=== PATIENT | male | born 1940 | race Caucasian/White ===

== ENCOUNTER 2018-09-04 00:23 | Inpatient (IN) | payer OTHER ==
[~2018-09-04] VITALS: Ht 182.9 cm; Wt 86.2 kg
--- NOTE | ~2018-09-04 | HC ---
[facility] [place] [address] CONSULTATION Name: NEO SKY Room #: [facility] IN ..#: [id number] Admission: 09/04/18 Attend Phys: Jacobo Zimmer MD, Discharge: Date of : 42 Report #: [id number] THIS REPORT FOR: //name// CC: FAM unknown Jacobo Zimmer DATE OF SERVICE: 09/04/2018 NEPHROLOGY CONSULTATION REASON FOR CONSULTATION: Acute kidney injury. HISTORY OF PRESENT ILLNESS: The patient was found down at home with an oii-sz-wnzhgcwx cardiac arrest, was resuscitated in the field and brought in. He is on hypothermic protocol. His creatinine is 2. He has had some degree of hypotension and metabolic acidosis, had heart block, was taken to the wheelabrator operator, had a temporary pacemaker placed. PAST MEDICAL HISTORY: As taken from the charts. The patient is comatose in the ICU, intubated on the ventilator. He has a history of peripheral arterial disease, previous right iliac and SFA stents and previous bilateral carotid endarterectomies. He has a history of hypertension as well. There is apparently remote history of bladder cancer additionally. SOCIAL HISTORY: Reveals a former smoker and drinker, but not recently. and lives with his . FAMILY HISTORY: Not obtainable. REVIEW OF SYSTEMS: Not obtainable. PHYSICAL EXAMINATION: GENERAL: The patient is unresponsive on the vent in the ICU. He is on pressors, both Levophed and dopamine. VITAL SIGNS: Blood pressure 95/46, pulse 111 and regular. SKIN: Slightly cool. SKELETAL: Well developed, well nourished. HEENT: Extraocular movements are not tested. Pupils reactive. Endotracheal tube in place. NECK: Supple. CHEST: Coarse with some rhonchi. HEART: Regular but tachycardic. ABDOMEN: Soft and nontender. EXTREMITIES: Show no peripheral edema. The feet are slightly cool. LABORATORY DATA: Hemoglobin is 11.9, white count 20.4, he is up to [address] [address] CONSULTATION Name: NEO SKY Room #: [address] [place] [address] [place] [facility].#: [id number] Admission: 09/04/18 Attend Phys: Jacobo Zimmer MD, Discharge: Date of : 42 Report #: [id number] initially too, platelets are 270. Sodium 136, potassium 3.2, chloride 103, bicarbonate 22, BUN 26, creatinine 2, glucose is 329, calcium 6.7, phosphorus 4.6, magnesium 2.0. ASSESSMENT AND PLAN: 1. Acute kidney injury. We do not have a history of prior renal disease. His creatinine is up. He is an roy-si-uzbnwgpf arrest. He obviously had an ischemic insult to his kidneys, whether he will recover or not remains to be seen. He is making some urine, but it is dwindling off. We will adjust IV fluids, add some bicarbonate, keep up his volume. We will try to taper him off the dopamine to maintain the Levophed looking for a mean arterial pressure of at least 60 at the current time and we will see as to whether he will recover are not. 2. Hypotension. Fluids and pressors indicated. 3. Dsh-xm-hbttmeam cardiac arrest, on hypothermia protocol. 4. History of peripheral arterial disease, carotid endarterectomies and peripheral stenting. 5. Hypokalemia. We will replace. By: [id number] 1304 Jacobo Neil MD /nt
--- NOTE | ~2018-09-04 | EKG ---
[address] [place] [address] ELECTROCARDIOGRAM REPORT Name: NEO SKY Room #: 239-P ADM IN M.R.#: [id number] Admission: 09/04/18 Attend Phys: Jacobo Zimmer MD, Discharge: Date of : 42 Report #: [id number] THIS REPORT FOR: //name// [facility] ED Test Date: 2018-09-04 Test Time: 00:29:36 Pat Name: NEO SKY Department: Room: 239 Gender: M Procedures Nurse: MOISÉS : 1940 Requested By: Yefri Cowan Order Number: [id number] MD: Riley Martell Measurements Intervals [place] Rate: 54 P: 0 [place]: 71 QRS: -84 QRSD: 155 T: 67 QT: 563 QTc: 534 Interpretive Statements Possible atrial flutter RBBB and LAFB ST and T wave abnormality, consider ischemia No previous ECG available for comparison Electronically Signed On 09-04-2018 8:15:47 CDT by Riley Martell [email or web address] <ELECTRONICALLY SIGNED> By: Riley Martell MD, [facility] 09/04/18 0815 0029 0029 Riley Martell MD, [facility] /EPI
--- NOTE | ~2018-09-04 | 2DMMODE ---
[facility] [employer] [place] [place] [address] 2 D/M-MODE ECHOCARDIOGRAM Name: NEO SKY II Room #: 239-P [facility] IN ..#: [id number] Admission: 09/04/18 Attend Phys: Jacobo Zimmer, Discharge: Date of : 42 Date of Service: 09/04/18 1239 Report #: [id number] THIS REPORT FOR: //name// APPROVED REPORT Study performed: 09/04/2018 09:56:57 EXAM: Comprehensive 2D, Doppler, and color-flow Echocardiogram Patient Location: ICU Room #: [facility] Status: routine BSA: 2.04 HR: 111 bpm BP: 98/36 mmHg Rhythm: Tachycardia Other Information Study Quality: Fair/not all measurements were obtainable Technically limited study due to Patient on vent in ICU. Limited mobility. Poor windows availability. Indications Cardiac arrest, hypotension, status post temporary pacemaker. Hx: PVD, HTN, tob and ETOH abuse. 2D Dimensions IVSd: 12.04 (7-11mm) LVOT Diam: 19.87 (18-24mm) LVDd: 35.43 mm PWd: 11.84 (7-11mm) LVDs: 27.30 (25-40mm) Aortic Root: 31.39 mm Aortic Valve AoV Peak Roland.: 1.90 m/s AO Peak Gr.: 14.41 mmHg LVOT Max P.07 mmHg LVOT Max V: 1.13 m/s DAMON Vmax: 1.84 cm2 Mitral Valve MV Decel. Time: 150.68 ms MV E Max Roland.: 0.98 m/s Pulmonary Valve PV Peak Roland.: 1.33 m/s PV Peak Gr.: 7.04 mmHg [facility] [address] [place] [address] 2 D/M-MODE ECHOCARDIOGRAM Name: NEO SKY Room #: [facility] IN [facility].#: [id number] Admission: 09/04/18 Attend Phys: Jacobo Zimmer, Discharge: Date of : 42 Date of Service: 09/04/18 1239 Report #: [id number] Tricuspid Valve TR Peak Roland.: 2.65 m/s RAP Estimate: 5.00 mmHg TR Peak Gr.: 28.03 mmHg PA Pressure: 33.00 mmHg Left Ventricle The left ventricle is normal size. Paradoxical septal motion possibly from RV pacing. Mild concentric left ventricular hypertrophy. Left ventricular systolic function is mildly decreased. LVEF is 45-50%. This study is not technically sufficient to allow evaluation of the LV diastolic function. Right Ventricle The right ventricle appears grossly normal size and function. Atria The left atrium size is normal. The right atrium size is normal. Aortic Valve The aortic valve is mildly sclerotic. Trace aortic regurgitation. There is no aortic valvular stenosis. Mitral Valve The mitral valve is normal in structure. There is no mitral valve regurgitation noted. Tricuspid Valve The tricuspid valve is normal in structure. Trace tricuspid regurgitation. Estimated PAP is 35mmHg. Pulmonic Valve The pulmonary valve is normal in structure. Trace pulmonic regurgitation. Great Vessels The aortic root is normal in size. IVC is normal in size and collapses >50% with inspiration. Pericardium There is no pericardial effusion. <Conclusion> Left ventricular systolic function is mildly decreased. LVEF is 45-50%. [facility] [employer] [place] [address] 2 D/M-MODE ECHOCARDIOGRAM Name: JOSE DANIELNEO Room #: 239-P [facility] IN .R.#: [id number] Admission: 09/04/18 Attend Phys: Jacobo Zimmer, Discharge: Date of : 42 Date of Service: 09/04/18 1239 Report #: [id number] Paradoxical septal motion possibly from RV pacing. The aortic valve is mildly sclerotic. Trace aortic regurgitation, no stenosis The mitral valve is normal in structure. No mitral valve regurgitation Trace tricuspid regurgitation. Estimated pulmonary artery pressure of 35mmHg. There is no pericardial effusion. <ELECTRONICALLY SIGNED> By: Riley Martell MD, FACC 09/04/18 1239 123 1239 Riley Martell MD, FACC /INF
--- NOTE | ~2018-09-04 | H ---
[facility] [place] [address] HISTORY AND PHYSICAL Name: NEO SKY ARLENE Room #: 239-P [facility] IN M.R.#: [id number] Admission: 09/04/18 Attend Phys: Jacobo Zimmer MD, Discharge: 09/05/18 Date of : 42 Report #: [id number] THIS REPORT FOR: //name// CC: FAM unknown Jacobo Pate DATE OF SERVICE: 09/04/2018 HISTORY OF PRESENT ILLNESS: The patient is a 77-year-old man who was in out of hospital arrest. Does not have specific cardiac history. He has had prior bilateral carotid endarterectomies and recently had some right iliac and SFA stents from the best I can tell. noted he has had a good day. He has been active. The stents were placed in his leg a week or two ago. He is on aspirin and Plavix. He is also on amlodipine, hydrochlorothiazide and Protonix or some PPI. Noticed that he was not breathing when he came to bed. Subsequently, summoned paramedics. It is not clear how long the downtime was here. Comes in and obviously received resuscitation in the field with some epinephrine. Found to have complete heart block here and is currently transcutaneously paced, although his underlying rhythm looks to be a ventricular escape in the 30s or 40s. There appears to be AV dissociation. His pressure is 90-100 systolic with 15 mcg of dopamine and 5 of Levophed. He was sedated and paralyzed by the Emergency Room physician. He is being brought into the labor arbitrator for possible temporary pacer and coronary angiography. Electrolytes that I am aware of is a potassium of 2.9 and he is being replaced IV parish and a creatinine of 2.1. Hemoglobin was 11. PAST MEDICAL HISTORY: Positive for the peripheral vascular disease, carotid endarterectomy, bladder cancer and hypertension. He believes he has had a stress test few years ago. DJD. SOCIAL HISTORY: Prior smoker and drinker, none recently. He is a retired electrician machine shop. He is with one child who is in [place], accompanied by his and some other family. FAMILY HISTORY: Not obtainable. REVIEW OF SYSTEMS: Not obtainable. PHYSICAL EXAMINATION: GENERAL: He is paralyzed. He is intubated. He is on a ventilator. VITAL SIGNS: Transcutaneously paced with a rate of 70, pressure has been 190-100 systolic. HEENT: Eyes reveal no xanthelasmas. Pharynx is slightly dry, appears to be dry mucous membranes. He is intubated. NECK: Shows preserved upstrokes without JVD. [facility] [address] [place] [address] HISTORY AND PHYSICAL Name: NEO SKY Room #: 239-P [facility] IN M.R.#: [id number] Admission: 09/04/18 Attend Phys: Jacobo Zimmer MD, Discharge: 09/05/18 Date of : 42 Report #: [id number] LUNGS: Clear anteriorly. CARDIOVASCULAR: S1 and S2. Systolic murmur is noted. ABDOMEN: Slightly distended. EXTREMITIES: There are diminished femoral pulses. I cannot palpate distal pulses. NEUROLOGICAL: He is paralyzed and sedated. MUSCULOSKELETAL: Generalized arthritic changes. SKIN: Warm and dry without xanthoma or ulcer. ASSESSMENT: 1. Out of hospital cardiac arrest. 2. Complete heart block. 3. Hypokalemia. 4. Peripheral vascular disease. 5. Possible acute infarct setting, although no definite current of injury. 6. Degenerative joint disease. RECOMMENDATIONS AND PLAN: We will proceed to the catheterization lab at least for temporary pacemaker and coronary angiography and intervention as indicated. The patient has apparently done fairly well and had a reasonable quality of life. Certainly this is a grave situation. I did discuss this with the . Out of hospital arrest, we are replacing electrolytes, temporary pacemaker and intervention if indicated. Arterial and venous lines and we will proceed then to the ICU in certainly guarded condition here, critical. <ELECTRONICALLY SIGNED> By: Jacobo Zimmer MD, FACC 09/06/18 1255 0219 0356 Jacobo Zimmer MD, FACC /nt
--- NOTE | ~2018-09-04 | EKG ---
[address] [address] ELECTROCARDIOGRAM REPORT Name: NEO SKY Room #: 239-P ADM IN M.R.#: [id number] Admission: 09/04/18 Attend Phys: Jacobo Zimmer MD, Discharge: Date of : 42 Report #: [id number] THIS REPORT FOR: //name// [facility] ED Test Date: 2018-09-04 Test Time: 00:42:37 Pat Name: NEO SKY Department: Room: 239 P Gender: M Certified Pathology Assistant: MOISÉS : 1940 Requested By: Yefri Cowan Order Number: [id number] MD: Riley Martell Measurements Intervals [place] Rate: 50 P: [place]: QRS: -94 QRSD: 157 T: 37 QT: 565 QTc: 516 Interpretive Statements Sinus rhythm with complete heart block Right bundle branch block Anteroseptal infarct, age indeterminate No previous ECG available for comparison Electronically Signed On 09-04-2018 8:18:21 CDT by Riley Martell [email or web address] <ELECTRONICALLY SIGNED> By: Riley Martell MD, [facility] 09/04/18 0818 004 004 Riley Martell MD, [facility] /EPI
--- NOTE | ~2018-09-04 | CATHLAB ---
[facility] [address] [place] [address] INVASIVE PROCEDURE REPORT Name: NEO SKY Room #: 239-P [facility] IN ..#: [id number] Admission: 09/04/18 Attend Phys: Jacobo Zimmer, Discharge: Date of : 42 Date of Service: 09/05/18 1145 Report #: [id number] THIS REPORT FOR: //name// APPROVED REPORT Study performed: 09/04/2018 01:53:04 Patient Details Patient Status: In-Patient Room #: The patient is a 77 year-old male Event Personnel Jacobo Zimmer Floral Arranger, Haily Braxton [place], Christine RTYuki Monitor, Bridget Costa RN plasticator Performed Art Access - R femoral artery* [place]um Access - R femoral vein Left Heart Cath w/or w/o Coronaries [id number] [facility] Temporary Pacemaker Lead Inserted [id number] TPI Indication Arrhythmia Procedure Narrative The patient was brought emergently to the Cardiac Catheterization Laboratory and was prepped and draped in a sterile manner. The Right Groin^ was infiltrated with 1% Lidocaine subcutaneous anesthesia. A PINNACLE 6FR Sheath #[id number] sheath was inserted into the RFA 6FR^. Coronary angiography was performed using coronary diagnostic catheters. The right coronary system was accessed and visualized with a JR 4 catheter. The left coronary system was accessed and visualized with a JL 4 catheter. The left ventricle was accessed and visualized with a Pigtail catheter. Left ventriculogram was performed in MORAES projection. The patient tolerated the procedure well and there were no complications associated with the procedure. There was no hematoma. Fluoro Time: 3.44 minutes Dose: DAP 3832.10 cGycm2 429 mGy Contrast Type and Amount: Visipaque 65 ml Hemodynamics The aortic pressure is 115/44 mmHg with a mean of 65 mmHg. The left ventricular pressure is 112/15 mmHg with a mean of mmHg. The left ventricular end diastolic pressure is 29 mmHg. [facility] [address] [place] [address] INVASIVE PROCEDURE REPORT Name: JOSE DANIELNEO Bulmaro Room #: 239-P [facility] IN [facility].#: [id number] Admission: 09/04/18 Attend Phys: Jacobo Zimmer, Discharge: Date of : 42 Date of Service: 09/05/18 1145 Report #: [id number] Conclusion #1 emergent temporary pacemaker placed for complete heart block A-V dissociation #2 left main was some moderate distal disease giving rise to LAD and circumflex #3 LAD has mildly high-grade proximal and attenuated vessel and disease noted relatively small area in distribution. Flow however is normal #4 circumflex OM is a large dominant system with some mild ostial disease just at the takeoff of the left main no distal occlusive disease is noted 40-50% proximal circumflex #5 normal left ventricular size LV function lower limits of normal 50% range I do not see a segmental wall motion abnormality Recommendations and plan: The patient blood pressure is maintained some pressor support. This is a out of hospital arrest. Patient intubated sedated and paralyzed. Anatomy is difficult to evaluate in the ostial proximal LAD but does not appear to be the culprit for this event. I have been able to decrease the pressor support during this procedure. Patient will transfer to the ICU in critical condition. The LV function is preserved and does not show segmental wall motion abnormality. Approximately 30 minutes of critical care time involving this patient both in the emergency room and prior to initiating the catheterization procedure occurred. <ELECTRONICALLY SIGNED> By: Jacobo Zimmer MD, FACC 09/05/18 1145 1145 1145 Jacobo Zimmer MD, FACC /INF
[2018-09-04 00:26] VITALS: BP 89/44
[2018-09-04 00:45] LABS: HEMATOCRIT 34.7 % (42.0-52.0); HEMOGLOBIN 11.9 gm/dL (14.0-18.0); MCH 33.3 pg (26.0-34.0); MCHC 34.3 g/dL (28.0-37.0); MCV 96.9 fL (80.0-100.0); PLATELET COUNT 270 thou/uL (150-400); RBC 3.58 mil/uL (4.50-6.00); RDW 13.3 % (10.5-14.5); WBC 13.6 thou/uL (4.0-11.0)
[2018-09-04 00:50] LABS: CALCIUM 7.9 mg/dL (8.5-10.1); CREATININE 2.1 mg/dL (0.7-1.3)
[2018-09-04 00:59] LABS: TROPONIN-I 0.25 ng/mL (<0.06)
[2018-09-04 01:01] LABS: POTASSIUM 2.9 mmol/L (3.5-5.1)
[2018-09-04 01:01] LABS: BE(vivo) -9.2 mmol/L (-2 to +3); HCO3 17.5 mmol/L (22.0-26.0); PCO2 40.9 mmHg (35.0-45.0); PO2 418.3 mmHg (80.0-100.0); pH 7.248 (7.360-7.450); sO2 99.8 % (92.0-98.0)
[2018-09-04] MEDS ORDERED: PLAVIX 75 MG TA75 M1 PO (01:14)
[2018-09-04] MEDS ORDERED: PROTONIX40 M1 PO (01:15)
[2018-09-04] MEDS ORDERED: NORVASC2.5 MG PO (01:15)
[2018-09-04] MEDS ORDERED: TERAZOSIN HCL5 MG PO (01:15)
[2018-09-04] MEDS ORDERED: HYDROCHLOROTHIA25 M2 PO (01:16)
[2018-09-04] MEDS ORDERED: VITAMIN D1000 UNI1 PO (01:16)
[2018-09-04 01:31] LABS: APTT 27.8 Seconds (24.5-32.8); PROTIME 10.3 Seconds (9.3-11.4)
[2018-09-04 01:33] LABS: MAGNESIUM 2.2 mg/dL (1.8-2.4); PHOSPHORUS 6.2 mg/dL (2.5-4.9)
[2018-09-04 02:13] VITALS: BP 96/38
[2018-09-04 03:46] VITALS: BP 92/31
[2018-09-04 04:00] VITALS: BP 93/36
[2018-09-04 04:15] LABS: HCO3 20.1 mmol/L (22.0-26.0); PCO2 52.2 mmHg (35.0-45.0); PO2 346.8 mmHg (80.0-100.0); pH 7.204 (7.360-7.450); sO2 99.7 % (92.0-98.0)
[2018-09-04 05:02] LABS: HEMATOCRIT 35.3 % (42.0-52.0); HEMOGLOBIN 11.9 gm/dL (14.0-18.0); MCH 32.4 pg (26.0-34.0); MCHC 33.7 g/dL (28.0-37.0); MCV 96.2 fL (80.0-100.0); PLATELET COUNT 270 thou/uL (150-400); RBC 3.67 mil/uL (4.50-6.00); RDW 13.3 % (10.5-14.5); WBC 20.4 thou/uL (4.0-11.0)
[2018-09-04 05:27] LABS: CALCIUM 6.7 mg/dL (8.5-10.1); PHOSPHORUS 4.6 mg/dL (2.5-4.9); POTASSIUM 3.2 mmol/L (3.5-5.1)
[2018-09-04 05:31] LABS: TROPONIN-I 7.22 ng/mL (<0.06)
[2018-09-04 05:35] LABS: D-DIMER 28.53 ug/mLFEU (0.19-0.50); FIBRINOGEN 292.3 mg/dL (210-360); INR 1.3
[2018-09-04 05:51] LABS: ABSOLUTE NEUTROPHILS 19.2 thou/uL (1.4-8.2); METAMYELOCYTES 1 %
[2018-09-04 05:52] LABS: PLATELET ESTIMATE NORMAL
[2018-09-04 07:49] LABS: BE(vivo) -12.4 mmol/L (-2 to +3); HCO3 16.2 mmol/L (22.0-26.0); PCO2 47.8 mmHg (35.0-45.0); PO2 79.8 mmHg (80.0-100.0); sO2 92.1 % (92.0-98.0)
[2018-09-04 07:50] LABS: pH 7.149 (7.360-7.450)
[2018-09-04 08:06] LABS: CHOLESTEROL 86 mg/dL (<200); HDL CHOLESTEROL 39 mg/dL (>40); LDL CHOLESTEROL 42 mg/dL (<100); TC:HDL 2.2 Ratio (Not establshd); TRIGLYCERIDE 27 mg/dL (<150); VLDL 5 mg/dL (<40)
[2018-09-04 08:48] LABS: APTT > 198.4 Seconds (24.5-32.8)
[2018-09-04 10:35] LABS: HEMATOCRIT 31.5 % (42.0-52.0); HEMOGLOBIN 11.1 gm/dL (14.0-18.0); MCH 33.8 pg (26.0-34.0); MCHC 35.2 g/dL (28.0-37.0); MCV 95.9 fL (80.0-100.0); PLATELET COUNT 224 thou/uL (150-400); RBC 3.28 mil/uL (4.50-6.00); RDW 13.1 % (10.5-14.5); WBC 12.5 thou/uL (4.0-11.0)
[2018-09-04 10:47] LABS: ALBUMIN 2.1 g/dL (3.4-5.0); CALCIUM 6.8 mg/dL (8.5-10.1); CREATININE 2.1 mg/dL (0.7-1.3); PHOSPHORUS 1.9 mg/dL (2.5-4.9)
[2018-09-04 10:51] LABS: BE(vivo) -7.2 mmol/L (-2 to +3); PCO2 54.3 mmHg (35.0-45.0); PO2 84.8 mmHg (80.0-100.0); sO2 94.1 % (92.0-98.0)
[2018-09-04 10:51] LABS: POTASSIUM 2.6 mmol/L (3.5-5.1)
[2018-09-04 10:52] LABS: pH 7.205 (7.360-7.450)
[2018-09-04 10:55] LABS: ABSOLUTE NEUTROPHILS 11.8 thou/uL (1.4-8.2); METAMYELOCYTES 1 %; PLATELET ESTIMATE NORMAL
[2018-09-04 10:56] LABS: INR 1.3; PROTIME 13.2 Seconds (9.3-11.4)
[2018-09-04 11:19] LABS: APTT > 198.4 Seconds (24.5-32.8)
[2018-09-04 16:03] VITALS: BP 93/46
[2018-09-04] MEDS ORDERED: XALATAN2.5 ML (16:34)
[2018-09-04] MEDS ORDERED: FLEXERIL PO (16:37)
[2018-09-04 19:21] LABS: BE(vivo) -12.5 mmol/L (-2 to +3); HCO3 16.5 mmol/L (22.0-26.0); PCO2 52.8 mmHg (35.0-45.0); PO2 57.8 mmHg (80.0-100.0); sO2 79.7 % (92.0-98.0)
[2018-09-04 19:22] LABS: pH 7.114 (7.360-7.450)
[2018-09-04 20:07] LABS: GLYCOHEMOGLOBIN (HGB A1C) 5.4 % (4.8-5.6)
[2018-09-04 20:29] LABS: ABSOLUTE NEUTROPHILS 6.1 thou/uL (1.4-8.2); BASOPHILS 0.3 % (0.0-2.0); EOSINOPHILS 0.1 % (0.0-3.0); HEMATOCRIT 26.9 % (42.0-52.0); HEMOGLOBIN 9.5 gm/dL (14.0-18.0); LYMPHOCYTES 7.1 % (24.0-44.0); MCH 33.9 pg (26.0-34.0); MCHC 35.2 g/dL (28.0-37.0); MCV 96.3 fL (80.0-100.0); MONOCYTES 4.3 % (1.0-8.0); PLATELET COUNT 184 thou/uL (150-400); POLYS 88.2 % (36.0-66.0); RBC 2.79 mil/uL (4.50-6.00); RDW 12.8 % (10.5-14.5); WBC 6.9 thou/uL (4.0-11.0)
[2018-09-04 20:42] LABS: ALBUMIN 1.8 g/dL (3.4-5.0); CREATININE 1.8 mg/dL (0.7-1.3)
[2018-09-04 20:43] LABS: CALCIUM 6.2 mg/dL (8.5-10.1); CREATININE 1.8 mg/dL (0.7-1.3); MAGNESIUM 1.6 mg/dL (1.8-2.4)
[2018-09-04 20:44] LABS: INR 1.1; POTASSIUM 2.9 mmol/L (3.5-5.1); PROTIME 11.6 Seconds (9.3-11.4)
[2018-09-04 20:45] LABS: APTT 77.4 Seconds (24.5-32.8)
[2018-09-04 21:51] LABS: BE(vivo) -8.6 mmol/L (-2 to +3); HCO3 19.5 mmol/L (22.0-26.0); PCO2 53.4 mmHg (35.0-45.0); PO2 57.8 mmHg (80.0-100.0); sO2 82.6 % (92.0-98.0)
[2018-09-04 21:52] LABS: pH 7.181 (7.360-7.450)
[2018-09-04 23:54] LABS: BE(vivo) -1.8 mmol/L (-2 to +3); HCO3 25.9 mmol/L (22.0-26.0); PCO2 59.8 mmHg (35.0-45.0); sO2 77.5 % (92.0-98.0)
[2018-09-04 23:55] LABS: PO2 48.9 mmHg (80.0-100.0); pH 7.255 (7.360-7.450)
[2018-09-05 01:09] LABS: MAGNESIUM 1.9 mg/dL (1.8-2.4); PHOSPHORUS 4.4 mg/dL (2.5-4.9)
[2018-09-05 01:11] LABS: CALCIUM 5.9 mg/dL (8.5-10.1); TROPONIN-I 4.4 ng/mL (<0.06)
[2018-09-05 02:37] LABS: ABSOLUTE NEUTROPHILS 6.5 thou/uL (1.4-8.2); BASOPHILS 0.4 % (0.0-2.0); HEMATOCRIT 26.9 % (42.0-52.0); HEMOGLOBIN 9.3 gm/dL (14.0-18.0); MCH 32.8 pg (26.0-34.0); MCHC 34.4 g/dL (28.0-37.0); MCV 95.3 fL (80.0-100.0); MONOCYTES 1.5 % (1.0-8.0); PLATELET COUNT 174 thou/uL (150-400); POLYS 92.1 % (36.0-66.0); RBC 2.82 mil/uL (4.50-6.00); RDW 13.1 % (10.5-14.5); WBC 7.1 thou/uL (4.0-11.0)
[2018-09-05 02:49] LABS: CREATININE 1.8 mg/dL (0.7-1.3); PHOSPHORUS 4.3 mg/dL (2.5-4.9)
[2018-09-05 02:51] LABS: CALCIUM 5.9 mg/dL (8.5-10.1); TROPONIN-I 4.21 ng/mL (<0.06)
[2018-09-05 02:58] LABS: BE(vivo) -7.2 mmol/L (-2 to +3); HCO3 21.7 mmol/L (22.0-26.0); PCO2 63.1 mmHg (35.0-45.0); PO2 65.6 mmHg (80.0-100.0); sO2 86.3 % (92.0-98.0)
[2018-09-05 02:59] LABS: pH 7.155 (7.360-7.450)
[2018-09-05 08:49] LABS: HEMATOCRIT 25.6 % (42.0-52.0); HEMOGLOBIN 8.8 gm/dL (14.0-18.0); MCH 33.6 pg (26.0-34.0); MCHC 34.3 g/dL (28.0-37.0); MCV 98.1 fL (80.0-100.0); PLATELET COUNT 168 thou/uL (150-400); RBC 2.61 mil/uL (4.50-6.00); RDW 13.5 % (10.5-14.5); WBC 7.7 thou/uL (4.0-11.0)
[2018-09-05 09:00] LABS: INR 1.2; PROTIME 12.6 Seconds (9.3-11.4)
[2018-09-05 09:06] LABS: ALBUMIN 1.7 g/dL (3.4-5.0); CALCIUM 6.1 mg/dL (8.5-10.1); CREATININE 2.2 mg/dL (0.7-1.3); MAGNESIUM 2.3 mg/dL (1.8-2.4); POTASSIUM 3.6 mmol/L (3.5-5.1); TOTAL BILIRUBIN 0.8 mg/dL (<0.1-1.0); TOTAL PROTEIN 4.3 g/dL (6.4-8.2)
[2018-09-05 09:34] LABS: ABSOLUTE NEUTROPHILS 6.8 thou/uL (1.4-8.2); METAMYELOCYTES 2 %; PLATELET ESTIMATE NORMAL
== END 2018-09-05 14:55 | DRG 208 ==
LOC: ER 00:23 → EROBS 02:24 → ICU 02:24 → TBA 02:30 → ICU 04:10
PROVIDERS: Emergency Medicine; Internal Medicine; Internal Medicine Cardiovascular Disease; Internal Medicine Nephrology; Nurse Practitioner Acute Care; Pediatrics
PROC: 5A1945Z Respiratory Ventilation, 24-96 Consecutive Hours (ICD-10-PCS; principal; 2018-09-04)
PROC: 0BH17EZ Insertion of Endotracheal Airway into Trachea, Via Natural or Artificial Opening (ICD-10-PCS; principal; 2018-09-04)
PROC: 4A023N7 Measurement of Cardiac Sampling and Pressure, Left Heart, Percutaneous Approach (ICD-10-PCS; principal; 2018-09-04)
PROC: B2151ZZ Fluoroscopy of Left Heart using Low Osmolar Contrast (ICD-10-PCS; principal; 2018-09-04)
PROC: B2111ZZ Fluoroscopy of Multiple Coronary Arteries using Low Osmolar Contrast (ICD-10-PCS; principal; 2018-09-04)
PROC: 0B9C8ZX Drainage of Right Upper Lung Lobe, Via Natural or Artificial Opening Endoscopic, Diagnostic (ICD-10-PCS; 2018-09-04)
PROC: 5A1213Z Performance of Cardiac Pacing, Intermittent (ICD-10-PCS; 2018-09-04)
PROC: B548ZZA Ultrasonography of Superior Vena Cava, Guidance (ICD-10-PCS; 2018-09-05)
PROC: 02HV33Z Insertion of Infusion Device into Superior Vena Cava, Percutaneous Approach (ICD-10-PCS; 2018-09-05)
DX: J96.01 Acute respiratory failure with hypoxia (principal); I44.2 Atrioventricular block, complete; N17.9 Acute kidney failure, unspecified; E87.2 Acidosis; I46.9 Cardiac arrest, cause unspecified; K21.9 Gastro-esophageal reflux disease without esophagitis; N40.0 Benign prostatic hyperplasia without lower urinary tract symptoms; I95.9 Hypotension, unspecified; R73.9 Hyperglycemia, unspecified; E87.6 Hypokalemia; I73.9 Peripheral vascular disease, unspecified; M19.90 Unspecified osteoarthritis, unspecified site; I10 Essential (primary) hypertension; Z79.899 Other long term (current) drug therapy; Z88.8 Allergy status to other drugs, medicaments and biological substances; Z85.51 Personal history of malignant neoplasm of bladder; Z95.828 Presence of other vascular implants and grafts; Z87.891 Personal history of nicotine dependence
CPT/HCPCS: 10078; 27000; 32302